=== PATIENT | male | born 1990 | race African-American/Black ===

== ENCOUNTER 2018-08-29 21:05 | Emergency (ER) | payer SELFPAY ==
--- NOTE | 2018-08-29 21:14 | EDM.PDOC ---
ED HPI GENERAL MEDICAL PROBLEM - General Chief Complaint: Genitourinary Problem Stated Complaint: DISCHARGE Time Seen by Provider: 08/29/18 21:14 Source of Information: Reports: Patient - History of Present Illness INITIAL COMMENTS - FREE TEXT/NARRATIVE: HISTORY AND PHYSICAL: History of present illness: [Patient presents with his sexual partner they're both having genital discharge , he is having painful urination and exudate at the May meatus throughout the day no fever nausea vomiting chills sweats ] patient unable to provide urine sample Review of systems: As per history of present illness and below otherwise all systems reviewed and negative. Past medical history: As per history of present illness and as reviewed below otherwise noncontributory. Surgical history: As per history of present illness and as reviewed below otherwise noncontributory. Social history: No reported history of drug or alcohol abuse. Family history: As per history of present illness and as reviewed below otherwise noncontributory. Physical exam: HEENT: Atraumatic, normocephalic, pupils reactive, negative for conjunctival pallor or scleral icterus, mucous membranes moist, throat clear, neck supple, nontender, trachea midline. Lungs: Clear to auscultation, breath sounds equal bilaterally, chest nontender. Heart: S1S2, regular, negative for clicks, rubs, or JVD. Abdomen: Soft, nondistended, nontender. Negative for masses or hepatosplenomegaly. Negative for costovertebral tenderness. Pelvis: Stable nontender. Genitourinary: Normal male genitalia clear fluid at the meatus, I did obtain a genital swab Rectal: Deferred. Extremities: Atraumatic, negative for cords or calf pain. Neurovascular unremarkable. Neuro: Awake, alert, oriented. Cranial nerves II through XII unremarkable. Cerebellum unremarkable. Motor and sensory unremarkable throughout. Exam nonfocal. Diagnostics: [ genital swab Patient unable to provide you a ] Therapeutics: [ Rocephin 250 mg IM Azithromycin 1 g by mouth now ] Impression: [ dysuria Penile discharge ] Definitive disposition and diagnosis as appropriate pending reevaluation and review of above. Penis Pain Score (Numeric/FACES): 7 - Related Data Allergies Allergy/AdvReac Type Severity Reaction Status Date / Time No Known Allergies Allergy Verified 08/29/18 21:13 Home Meds: Home Meds . [No Known Home Meds] 08/29/18 [History] ED ROS GENERAL - Review of Systems Review Of Systems: See Below ED EXAM, GENERAL - Physical Exam Exam: See Below Course - Vital Signs Last Recorded V/S: Last Vital Signs Temp 96.2 F 08/29/18 21:10 Pulse 103 H 08/29/18 21:10 Resp 16 08/29/18 21:10 BP 139/93 H 08/29/18 21:10 Pulse Ox 97 08/29/18 21:10 - Orders/Labs/Meds Orders: Active Orders 24 hr Category Date Time Status CHLAMYDIA AND GONORRHEA BY [facility] Stat Lab 08/29/18 21:12 Ordered CHLAMYDIA AND GONORRHEA BY [facility] Stat Lab 08/29/18 21:38 Ordered UA RFX CARLTON AND CULT IF INDIC [URIN] Stat Lab 08/29/18 21:12 Ordered Meds: Medications Discontinued Medications Generic Name Dose Route Start Last Admin Trade Name Freq PRN Reason Stop Dose Admin Azithromycin 1,000 mg 08/29/18 21:39 Zithromax PO 08/29/18 21:40 NOW STA Ceftriaxone Sodium 250 mg/ 1 mls @ 1 mls/sec 08/29/18 21:38 Lidocaine HCl IM 08/29/18 21:39 ONETIME ONE Departure - Departure Time of Disposition: 21:45 Disposition: Home, Self-Care 01 Condition: Good Clinical Impression: Dysuria, Penile discharge - Discharge Information Referrals: PCP,None [Primary Care Provider] - Forms: ED Department Discharge Additional Instructions: The following information is given to patients seen in the emergency department who are being discharged to home. This information is to outline your options for follow-up care. We provide all patients seen in our emergency department with a follow-up referral. The need for follow-up, as well as the timing and circumstances, are variable depending upon the specifics of your emergency department visit. If you don't have a primary care physician on staff, we will provide you with a referral. We always advise you to contact your personal physician following an emergency department visit to inform them of the circumstance of the visit and for follow-up with them and/or the need for any referrals to a consulting specialist. The emergency department will also refer you to a specialist when appropriate. This referral assures that you have the opportunity for follow-up care with a specialist. All of these measure are taken in an effort to provide you with optimal care, which includes your follow-up. Under all circumstances we always encourage you to contact your private physician who remains a resource for coordinating your care. When calling for follow-up care, please make the office aware that this follow-up is from your recent emergency room visit. If for any reason you are refused follow-up, please contact the [facility] emergency department at and asked to speak to the emergency department charge nurse. - My Orders Last 24 Hours: My Active Orders 08/29/18 21:12 CHLAMYDIA AND GONORRHEA BY [facility] Stat UA RFX CARLTON AND CULT IF INDIC [URIN] Stat 08/29/18 21:38 CHLAMYDIA AND GONORRHEA BY [facility] Stat - Assessment/Plan Last 24 Hours: My Active Orders 08/29/18 21:12 CHLAMYDIA AND GONORRHEA BY [facility] Stat UA RFX CARLTON AND CULT IF INDIC [URIN] Stat 08/29/18 21:38 CHLAMYDIA AND GONORRHEA BY [facility]MA Stat
[2018-08-29] MEDS ORDERED: cefTRIAXone 250 MG in Lidocaine 1% 1 ML IM ONE (21:38)
[2018-08-29] MEDS ORDERED: Azithromycin 250 MG Tab PO STA (21:39)
== END 2018-08-29 22:05 | disposition home or self-care (01) ==
LOC: MW.ED 21:05
DX: R30.0 Dysuria (principal); R36.9 Urethral discharge, unspecified
CPT/HCPCS: 87491; 87591; 96372; 99283; A9270; J0696; J2001